=== PATIENT | male | born 1975 | race Caucasian/White ===

== ENCOUNTER 2019-05-25 16:59 | Emergency (ER) | payer MEDICAID ==
[~2019-05-25] VITALS: Ht 175.3 cm; Wt 114.3 kg
[2019-05-25 17:11] VITALS: BP 164/97; Ht 175.3 cm; Wt 114.3 kg
== END 2019-05-25 18:43 | disposition home or self-care (01) ==
LOC: ED 16:59
DX: L03.032 Cellulitis of left toe (principal); E11.65 Type 2 diabetes mellitus with hyperglycemia
CPT/HCPCS: 82962